=== PATIENT | male | born 1990 | race Hispanic/Latino ===

== ENCOUNTER 2023-07-11 10:57 | Emergency (ER) | payer SELFPAY ==
[~2023-07-11 10:57] MED LIST: GARAMYCIN0.31 OP; NAPROSYN500 MG PO; NO HOME MEDS
== END 2023-07-11 11:49 | disposition left against medical advice (07) | DRG 951 ==
LOC: ED 10:57 → LWOBS 11:49
DX: Z53.21 Procedure and treatment not carried out due to patient leaving prior to being seen by health care provider (principal)